=== PATIENT | male | born 1975 | race Caucasian/White ===

== ENCOUNTER 2019-02-04 16:06 | Inpatient (IN) | payer SELFPAY ==
[2019-02-04] MEDS ORDERED: Morphine 4 MG/ML VIAL ONE (16:32)
[2019-02-04] MEDS ORDERED: Ondansetron PF 4 MG/2 ML Vial ONE (16:33)
[2019-02-04 17:21] LABS: #Eosinphils 0.1 thou/uL (0.0-0.7); #Lymphocytes 1.7 thou/uL (1.20-3.40); #Monocytes 0.8 thou/uL (0.11-0.59); %Basophils 0.2 % (0.0-1.0); %Eosinophils 0.8 % (0.0-10.0); %Lymphocytes 13.5 % (21.0-51.0); %Neutrophils 79.5 % (42.0-75.0); Hemoglobin 15.8 g/dL (14.0-18.0); Mean Corpuscular HGB CONC 33.9 g/dL (32.0-36.0); Mean Corpuscular Hemoglobin 29.2 pg (27.0-31.0); Mean Corpuscular Volume 86.2 fL (78.0-98.0); Mean Platelet Volume 9.2 fL (7.4-10.4); Platelet Count 186 thou/uL (130-400); RBC Distribution Width 12.3 % (11.5-14.5); White Blood Cell (WBC) Count 12.6 thou/uL (4.8-10.8)
--- NOTE | 2019-02-04 17:25 | CT ---
EXAM: Brain CT without contrast: HISTORY: Injury from trauma COMPARISON: None FINDINGS: Minimal motion artifact. No focal mass or midline shift. No intra or extra-axial hemorrhage. Sinuses and mastoids are clear of acute process. IMPRESSION: No mass or bleed or other significant acute intracranial process.
[2019-02-04 17:27] LABS: INR-International Normal Ratio 1.1; PTT 25.9 SEC (22.9-36.1); Prothrombin Time 14.1 SEC (12.0-14.7)
--- NOTE | 2019-02-04 17:33 | CT ---
EXAM: CT scan cervical spineWithout contrast: HISTORY: Injury from trauma COMPARISON: None FINDINGS: No evidence for acute fracture or facet dislocation. No significant malalignment. No prevertebral soft tissue swelling. Minimal disc osteophytosis with some associated multilevel stenosis. Incomplete segmentation anomaly at T1-T2 incidentally noted. IMPRESSION: No evidence for acute fracture or facet dislocation or other significant acute process.
--- NOTE | 2019-02-04 17:43 | CT ---
Exam: Facial bone CT scan without IV contrast: HISTORY: Injury from trauma FINDINGS: There is some irregularity of the left nasal bone evidence for nondisplaced fracture. There are exten sive dental caries with some prominent mandibular and maxillary periodontal disease and associated lucencies around numerous teeth. There is sinus mucosal disease including the right sphenoid and ethm oid sinuses with partial opacification of the left mastoid air cells. There appears to be dislocation of the left maxillary central incisor tooth. No evidence for other significant acute faci al bone fracture. The mandible itself appears intact. Zygomatic arches are intact. Visualized orbits are unremarkable. IMPRESSION: Evidence for nondisplaced left nasal bone fracture. Dislocated displaced left maxillary central incisor tooth. Extensive dental caries as well as extensi ve periodontal disease. Sinus mucosal disease. Partial opacification left mastoid. Findings of the brain CT, cervical spine CT scan, and facial bone CT scan were discussed with Dr. Amanda hui in the emergency room at 5:38 PM CODE CR
[2019-02-04 17:52] LABS: ALT (SGPT) 16 U/L (8-55); AST (SGOT) 23 U/L (5-34); Albumin 4.2 g/dL (3.5-5.0); Alcohol Less than 10 mg/dL (Less than 10); Alkaline Phosphatase 68 U/L (40-110); Anion Gap 13 mmol/L (10-20); BUN (Urea Nitrogen) 17 mg/dL (8.9-20.6); Bilirubin, Total 0.7 mg/dL (0.2-1.2); Calc. Creatinine Clearance 0 mL/min (70-130); Calcium 8.8 mg/dL (7.8-10.44); Carbon Dioxide 22 mmol/L (22-29); Chloride 109 mmol/L (98-107); Estimated GFR-MDRD 74; Globulin 2.5 g/dL (2.4-3.5); Glucose 103 mg/dL (70-105); Potassium 3.7 mmol/L (3.5-5.1); Protein, Total 6.7 g/dL (6.0-8.3); Sodium 140 mmol/L (136-145)
[2019-02-04] MEDS ORDERED: Fentanyl 100 MCG/2 ML VIAL ONE ×2 (18:10→19:27)
--- NOTE | 2019-02-04 19:10 | RAD ---
LATERAL RADIOGRAPH OF THE RIGHT FOREARM 02/04/19 COMPARISON: None. HISTORY: Injury, trauma, pain. FINDINGS: A single lateral radiograph of the right forearm is provided demonstrating a markedly comminuted and markedly displaced fracture of the distal right radius with dorsal and proximal displacement of the distal fracture fragment as well as the carpus. Post reduction imaging is advised. IMPRESSION: Comminuted distal right radial fracture with dorsal and proximal displacement of distal fracture frag ment as well as carpus. Dedicated right wrist imaging and post reduction imaging advised. POS: KIRILL
--- NOTE | 2019-02-04 19:12 | RAD ---
RIGHT FOOT THREE VIEWS: 02/04/19 COMPARISON: None. HISTORY: Fall, trauma, pain. FINDINGS: There is an obliquely oriented fracture involving the distal shaft of the fifth metatarsal with 4 mm of medial displacement of the distal fracture fragment. No evidence for dislocation. No additional fr acture. IMPRESSION: Obliquely oriented displaced fracture of the fifth metatarsal shaft. POS: KIRILL
--- NOTE | 2019-02-04 19:14 | RAD ---
FRONTAL RADIOGRAPH PELVIS 02/04/19 COMPARISON: None. HISTORY: Fall, trauma, pain. FINDINGS: No widening of the sacroiliac joints or pubic symphysis. The femoral heads project normally over thei r respective acetabulum. Pelvic ring is intact with no displaced fracture noted. IMPRESSION: No displaced fracture of the pelvis. POS: KIRILL
--- NOTE | 2019-02-04 19:16 | RAD ---
FRONTAL RADIOGRAPH CHEST: 02/04/19 COMPARISON: None. HISTORY: Fall, trauma, pain, FINDINGS: Supine imaging is provided, limiting assessment for pneumothorax and pleural fluid. Heart and mediastinal contours are grossly unremarkable. Lungs are clear. IMPRESSION: No acute findings. POS: KIRILL
[2019-02-04] MEDS ORDERED: Ketamine 50 MG/ML (10ML VIAL) ONE ×2 (19:27→19:56)
[2019-02-04] MEDS ORDERED: Lorazepam 2 MG/ML VIAL ONE ×2 (20:01→20:09)
--- NOTE | 2019-02-04 20:47 | RAD ---
Exam: Right wrist 2 views: HISTORY: Injury from trauma COMPARISON: Prior forearm evaluation 2 views of the wrist demonstrate stabilization with splint material. There is improvement in position and alignment: Compared to the prereduction study. There persists to be extensively comminuted fractures of the distal radius with marked dorsal angulation persistent. There is resultant overridin g and foreshortening. IMPRESSION: Extensively comminuted distal radial fracture with dorsal displacement and angulation and foreshorten ing with some overall improvement from the prereduction study. Splint material overlies the wrist. There is some minimal irregularity of the lateral trapezium, this could represent a chip type fractur e or may just represent artifact.
[2019-02-04] MEDS ORDERED: PROPOFOL 20 ML ONE (21:28)
[2019-02-04] MEDS ORDERED: Ondansetron PF 4 MG/2 ML Vial IVP PRN (21:55)
[2019-02-04] MEDS ORDERED: Morphine 4 MG/ML VIAL SLOW IVP PRN (21:55)
[2019-02-04] MEDS ORDERED: Dextrose 50% Abboject 50 ML SYRINGE SLOW IVP PRN (21:55)
[2019-02-04] MEDS ORDERED: Ondansetron ODT 4 MG TAB PO PRN (21:55)
[2019-02-04] MEDS ORDERED: Dextrose 5% in Water 1,000 ML IV PRN (21:55)
[2019-02-04] MEDS ORDERED: hydrALAZINE 20 MG/ML VIAL SLOW IVP PRN (21:55)
[2019-02-04] MEDS ORDERED: Cyclobenzaprine 10 MG TAB PO PRN (22:10)
[2019-02-04] MEDS ORDERED: traMADol HCl 50 MG TAB PO PRN (22:11)
[2019-02-04] MEDS ORDERED: Lidocaine 1% PF 5 ML VIAL ONE (22:49)
[2019-02-04] MEDS ORDERED: HYDROmorphone 0.5 MG/0.5 ML SYRINGE ONE (22:50)
--- NOTE | 2019-02-04 23:18 | RAD ---
Exam: Right forearm 2 views: HISTORY: Post reduction COMPARISON: Right wrist, 02/04/2019, 8:16 PM FINDINGS: There is improved position and alignment of the comminuted distal radial fracture with some minimal p ersistent dorsal displacement. Prominent soft tissue swelling. IMPRESSION: Improvement in position and alignment of the comminuted distal radial fracture.
--- NOTE | 2019-02-04 23:41 | RAD ---
Exam: Right elbow 3 views: HISTORY: Injury from trauma Splint material stabilizes the forearm and overlies the elbow. No evidence for overt acute fracture o r dislocation. If the patient has persistent or worsening elbow pain, follow-up imaging after removal of the splint material might be a consideration. IMPRESSION: No overt acute fracture or dislocation. Overlying splint material.
[2019-02-04] MEDS ORDERED: Acetaminophen 1,000 MG in Premix Bag 1 BAG IVPB SCH (23:59)
--- NOTE | 2019-02-05 00:46 | HP ---
This is Almaz Shipley NP dictating a report for Bruce Juarez MD. Requesting, Dr. Rice. CONSULT: 1. Orthopedic Surgery, Dr. Pereira. 2. Oral Maxillofacial Surgery, Dr. Webb. HISTORY OF PRESENT ILLNESS: This was a level 2 trauma activation, a 43-year-old gentleman who was standing on an unsecured ladder painting when the ladder tipped over causing the patient to fall landing on the ground. Patient reports hitting his face when he fell. Patient denies any loss of consciousness and was able to recall the event. Patient reported immediate facial pain and right arm pain and deformity. Patient also reported left foot pain. Patient was evaluated in the emergency room and was found to have an extensive comminuted distal radial fracture with dorsal displacement and angulation with foreshortening. Patient was given conscious sedation and attempted to reduce unsuccessfully. A splint was applied and the ER plans to attempt reduction again. Patient also has a 2 cm forehead laceration and a chin abrasion. No active bleeding. Patient was given ketamine with the first conscious sedation, which patient did not tolerate very well and became severely agitated afterwards. Patient was then given propofol for the second attempt. Patient was also given a tetanus injection and multiple doses of IV pain medication. Patient is currently in the emergency room, sedated, subjective information was obtained by the patient's spouse and the ER nurse. The patient's initial GCS was 15 prior to conscious sedation. Patient currently arouses to painful stimuli. PAST MEDICAL HISTORY: Anxiety, depression, paranoid schizophrenia, bipolar. According to the spouse, the patient refuses his medications. SURGICAL HISTORY: Unknown. SOCIAL HISTORY: Patient smokes two packs a day for the last 20 years, occasional alcohol use, denies illicit drug use. ALLERGIES: PENICILLIN. MEDICATIONS: None. REVIEW OF SYSTEMS: A 10-point review of systems was obtained by the patient's spouse and is negative unless otherwise indicated in the above HPI. PHYSICAL EXAMINATION: VITAL SIGNS: Blood pressure 130/83, pulse 96, respirations 16, SpO2 of 95% on room air, and temp 97.8. GENERAL: Middle aged gentleman, lying in hospital bed, sedated, arouses to painful stimuli, in no acute distress. HEENT: A 2 cm vertical laceration to the left forehead. No active bleeding, swelling to nose, no bloody drainage, dried blood to the lips, displaced upper teeth, abrasion to chin. Pupils are equal and reactive. NECK: Cervical spine cleared prior to conscious sedation, trachea midline. RESPIRATORY: Equal chest rise and fall, bilateral breath sounds clear, no wheezing, rales, or rhonchi. No obvious chest deformity. CARDIAC: Regular rate, regular rhythm, no murmurs. ABDOMEN: Abrasion to mid left abdomen. Abdomen is soft, nontender, and nondistended, active bowel sounds. PELVIS: Stable. EXTREMITIES: Moves all extremities, right upper extremity splinted, cap refill less than 2 seconds, distal pulses 2+ in all extremities, abrasion to right lower extremity, abrasion to left knee. NEUROLOGIC: Patient is sleepy at this time, conscious sedation being performed. DIAGNOSTIC DATA: 1. Right wrist x-ray, impression, extensive comminuted distal radial fracture with dorsal displacement and angulation and foreshortening. Brain CT, no mass or bleed or other significant acute intracranial process. 2. Cervical spine CT. No evidence for acute fracture or facet dislocation or other significant acute process. 3. Chest x-ray, impression, no acute findings. 4. Pelvis x-ray, impression, no displaced fracture of the pelvis. 5. Facial bone CT. Nondisplaced left nasal bone fracture, dislocated displaced left maxillary central incisor tooth. Extensive dental caries as well as extensive periodontal disease, sinus mucosal disease. Partial opacification of left mastoid. 6. Left foot x-ray, impression, obliquely oriented displaced fracture of the fifth metatarsal shaft. LABORATORY DATA: WBC 12.6, RBC 5.40, hemoglobin 15.8, hematocrit 46.5, and platelets 186. PT 14.1 and INR 1.1. Sodium 140, potassium 3.7, chloride 109, carbon dioxide 22, BUN 17, creatinine 1.07, estimated GFR 74, glucose 103, calcium 8.8, AST 23, and ALT 16. Plasma alcohol less than 10. IMPRESSION: 1. Status post fall from ladder approximately 6 feet. 2. Left comminuted distal radial fracture with dorsal displacement, reduced in the emergency room. 3. Left nondisplaced nasal bone fracture. 4. Dislocated, displaced left maxillary central incisor tooth. 5. Left displaced fifth metatarsal shaft fracture. 6. Left forehead laceration, status post repair in the ER. 7. Multiple abrasions to the extremities. 8. Acute traumatic pain. 9. History of anxiety, depression, paranoid schizophrenia, and bipolar, not on medications. PLAN: We will admit the patient to the surgical floor. Patient will be n.p.o. after midnight with maintenance IV fluids, normal saline at 120 an hour. Orthopedics, Dr. Pereira, plans to take the patient to the OR tomorrow to repair right arm and left foot fracture. Oral Maxillofacial Surgery, Dr. Webb, was consulted and pending plan. Patient will be placed on a pain regimen. PT and OT consult will be placed to evaluate and treat postop. The plan was discussed with the patient's spouse who agrees. The plan will be discussed with the attending after this dictation. Job ID: [id number] MTDD
[2019-02-05 01:38] VITALS: BMI 29.2
[2019-02-05] MEDS: Sodium Chloride 0.9% 1,000 ML IV SCH ×3 (02:30→14:45)
[2019-02-05] MEDS: Nicotine 14 MG PATCH TOP SCH (02:31)
[2019-02-05 04:41] LABS: Bilirubin Negative (Negative); Blood, Urine Negative (Negative); Clarity Clear (Clear); Glucose, Urine (Dipstick) Normal (Negative); Leukocyte Negative Leu/uL (Negative); Nitrite Negative (Negative); Protein, Urine (Dipstick) Negative (Neg-Trace); Urobilinogen Normal mg/dL (Less than 2)
[2019-02-05 04:54] LABS: Amphetamine Detected (NotDetected); Barbiturates Screen Not Detected (NotDetected); Benzodiazepine Screen Detected (NotDetected); Cocaine Metabolite Screen Not Detected (NotDetected); Medtox Control Line Valid? VALID (VALID); Medtox Reader # READER 4; Methadone Not Detected (NotDetected); Methamphetamine Detected (NotDetected); Opiate Screen Detected (NotDetected); Oxycodone Screen Not Detected (NotDetected); Phencyclidine (PCP) Not Detected (NotDetected); THC/Cannabinoid Screen Detected (NotDetected); Tricyclic Screen Not Detected (NotDetected)
[2019-02-05] MEDS: Ibuprofen 800 MG TAB PO SCH ×3 (05:59→21:13)
[2019-02-05 06:21] LABS: #Basophils 0.1 thou/uL (0.0-0.2); #Eosinphils 0.1 thou/uL (0.0-0.7); #Lymphocytes 2.4 thou/uL (1.20-3.40); #Monocytes 0.8 thou/uL (0.11-0.59); #Neutrophils 5.6 thou/uL (1.40-6.50); %Basophils 0.7 % (0.0-1.0); %Eosinophils 0.8 % (0.0-10.0); %Lymphocytes 26.7 % (21.0-51.0); %Monocytes 9.2 % (0.0-10.0); %Neutrophils 62.6 % (42.0-75.0); Mean Corpuscular HGB CONC 32.8 g/dL (32.0-36.0); Mean Corpuscular Hemoglobin 28.8 pg (27.0-31.0); Mean Corpuscular Volume 87.7 fL (78.0-98.0); Mean Platelet Volume 9.3 fL (7.4-10.4); Platelet Count 159 thou/uL (130-400); RBC Distribution Width 12.4 % (11.5-14.5); Red Blood Cell (RBC) Count 4.88 mill/uL (4.70-6.10); White Blood Cell (WBC) Count 8.9 thou/uL (4.8-10.8)
[2019-02-05 06:39] LABS: Anion Gap 11 mmol/L (10-20); BUN (Urea Nitrogen) 11 mg/dL (8.9-20.6); Calc. Creatinine Clearance 160 mL/min (70-130); Calcium 7.8 mg/dL (7.8-10.44); Carbon Dioxide 20 mmol/L (22-29); Chloride 110 mmol/L (98-107); Estimated GFR-MDRD Greater than 90; Glucose 93 mg/dL (70-105); Potassium 3.6 mmol/L (3.5-5.1); Sodium 137 mmol/L (136-145)
[2019-02-05] MEDS ORDERED: Clindamycin/D5W 900 MG in Premix Bag 1 BAG IVPB SCH (07:45)
[2019-02-05] MEDS: Famotidine 20 MG TAB PO SCH ×2 (07:53→21:13)
[2019-02-05] MEDS: Gabapentin 300 MG CAP PO SCH ×3 (07:53→21:12)
[2019-02-05] MEDS: Polyethylene Glycol 3350 17 GM Packet PO SCH (07:54)
[2019-02-05] MEDS: Acetaminophen 1,000 MG in Premix Bag 1 BAG IVPB SCH ×2 (08:35→14:00)
--- NOTE | 2019-02-05 08:50 | CON ---
DATE OF CONSULTATION: This is Good Estevez PA-C dictating a report for Vishnu Pereira MD. HISTORY: We were asked by Trauma and ER to see the patient. 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 The patient had wrist reset twice in the ER, first time not very successful, second time much better alignment and now he has good sensations and movement in the wrist. Currently, he is resting in a bed in room 4419, his significant other is next to him. Currently, he is answering questions well. His main concern though is he would like to go have a cigarette, which we have encouraged him not to. He does have a 14 mg nicotine patch added. PAST MEDICAL HISTORY: Anxiety, depression, paranoid schizophrenia, and bipolar. PAST SURGICAL HISTORY: None stated. SOCIAL HISTORY: Smokes 2 packs a day. Occasional alcohol use. Denies any drug use per spouse. 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 ALLERGIES: PENICILLIN. MEDICATIONS: He takes none. FAMILY HISTORY: For this particular incident is noncontributory. REVIEW OF SYSTEMS: He has a headache. He feels a little bit somnolent due to medications he is receiving and he has right wrist pain. Otherwise, rest of review of systems is negative. PHYSICAL EXAMINATION: GENERAL: Well-nourished, well-developed male, resting in the bed in room 4419, in no acute distress. Spouse is at the bedside. Speech is soft, but clear. He is oriented. HEENT: He does have some lacerations to the face and bruising. Otherwise, face is for the most part, symmetric. Smile symmetric. Tongue midline. NECK: Supple. Trachea midline. EXTREMITIES: Upper extremities; equal size, shape, symmetry. Normal bulk and tone with the exception of right upper extremity, which is splinted. He is able to move his digits okay and states he has good sensations. Lower extremities moving well. RESPIRATORY: No acute distress. DIAGNOSTIC DATA: X-rays shows a good alignment of fracture in the right wrist. It was quite angulated deformity prior to straightening. ASSESSMENT: 1. Fall from ladder with multiple injuries. 2. Right wrist fracture. PLAN: The patient admitted under Trauma. Currently n.p.o. We plan on doing an ORIF of the right wrist. Risks and benefits have been explained to patient and spouse. We have encouraged him not to smoke, healing will be problematic if he continues to smoke. Questions have been answered. Concerns have been addressed. Again, he understands risks and benefits and he is amenable to go forth with surgery. Although, the patient's states he does no illicit drug use. His tox screen is fairly positive. We will get him on surgery schedule today and get him consented. Keep him n.p.o. Trauma will treat pain accordingly. Job ID: [id number] MTDD
[2019-02-05] MEDS ORDERED: FLU VACC QS2019-20(6MOS UP)/PF 60 MCG/0.5 ML SYRINGE IM ONE (09:00)
[2019-02-05] MEDS ORDERED: PHENYLEPHRINE-NS 100 MCG/ML 10 ML SYRINGE ONE (09:55)
[2019-02-05] MEDS ORDERED: PROPOFOL 200 MG/20 ML VIAL ONE (09:55)
[2019-02-05] MEDS ORDERED: Bupivacaine HCl 0.5%/Epinephrine 1:200,000/PF 30 ml Vial ONE (09:56)
--- NOTE | 2019-02-05 10:12 | PRG ---
DATE OF SERVICE: 02/05/2019 SUBJECTIVE: Mr. Sanchez is a 43-year-old man, who is post injury day #1, status post fall from a ladder. The patient sustained multiple traumatic injuries including right wrist fracture, multiple facial bone fractures. He is awake and alert today. He reports 7/10 right arm pain. Venancio Coma Scale has remained at 15. He denies any dyspnea, syncope, or chest pain. OBJECTIVE: VITAL SIGNS: Include blood pressure 115/80, pulse 72, respiratory rate is 18, temperature 97.9 degrees Fahrenheit, and oxygen saturation is 98% on room air. HEENT: Reveals no significant facial swelling. Pupils are equal, round, and reactive to light and accommodation. HEART: Reveals regular rate and rhythm. No murmurs or gallops auscultated. LUNGS: Clear to auscultation bilaterally. Breathing, regular and nonlabored. ABDOMEN: Soft, nontender, and nondistended. EXTREMITIES: Reveal 2+ radial and pedal pulses bilaterally. NEUROLOGIC: Reveals no focal deficits present. LABORATORY FINDINGS: Include CBC with 8900 white blood cells, hemoglobin and hematocrit are stable at 14.0 and 42.8 respectively. Platelet count is 159,000. Metabolic profile; sodium 137, potassium 3.6, chloride is 110, bicarb is 20, BUN 11, creatinine 0.75, glucose is 93. IMPRESSION: 1. Post injury day #1 status post fall. 2. Multiple traumatic injuries including multiple facial fractures as well as right wrist fracture. PLAN: The patient is hemodynamically stable to proceed with Orthopedic Surgery for repair of the right wrist fracture. He is also pending evaluation by OMFS with regard to the facial fractures. Above findings and plan discussed with the patient, who indicates understanding of information given. We will optimize pain management. Job ID: [id number]
--- NOTE | 2019-02-05 10:29 | CON ---
DATE OF CONSULTATION: REASON FOR CONSULTATION: Nasal bone fracture and displaced tooth #9. CHIEF COMPLAINT: Fall. HISTORY OF PRESENT ILLNESS: This is a level 2 trauma activation. A 43-year-old male, fell from a ladder, hitting his face when he fell. Denies loss of consciousness. Complaining of right facial pain and arm pain and a displaced tooth. Splint was applied in the ER for arm fracture and tooth was also reduced in the ER. The patient also of note had a laceration of 2 cm to his forehead that was closed in the ER. PAST MEDICAL HISTORY: Anxiety, depression, paranoid schizophrenia, and bipolar. PAST SURGICAL HISTORY: Unknown. SOCIAL: The patient smokes 2 packs a day. Occasional alcohol. Denies illicit drugs. ALLERGIES: PENICILLIN. MEDICATIONS: None. PHYSICAL EXAMINATION: VITAL SIGNS: Stable. He is afebrile. GENERAL: He is awake, alert, and oriented x3. GCS 15. HEENT: His pupils are equal, round, and reactive to light and accommodation. He has a closed left forehead laceration approximately of about 2 cm. It is hemostatic. There is no mobility of his maxilla. There is no fracture mobility of his mandible. No crepitus of his nasal bones. His nares are patent. I see no blood in the nasal cavity. No septal hematoma. Tooth #9 has been placed back into its previous position. There is mild class 1 mobility. He does, however, have gross generalized coronal decay and cervical decay of all his teeth. Periodontal disease. Poor oral hygiene with abundant plaque and calculus. DIAGNOSTIC DATA: CT scan of the face shows dislocated tooth #9 as well as a nondisplaced nasal bone fracture. ASSESSMENT: 1. Nondisplaced nasal bone fracture. 2. Subluxated tooth #9. PLAN: No surgical intervention is needed at this time for either of his injuries. The patient's tooth is in good location. The patient does have a poor prognosis overall for his dentition and he has generalized periodontal disease and decay. Needs to follow up with General as an outpatient. Job ID: [id number]
[2019-02-05] MEDS ORDERED: Clindamycin/D5W 900 mg/50 ml Premix Bag ONE (12:55)
[2019-02-05] MEDS ORDERED: Midazolam HCl 2 mg/2 ml Vial ONE (16:32)
[2019-02-05] MEDS ORDERED: Fentanyl 100 MCG/2 ML VIAL ONE (16:32)
[2019-02-05] MEDS ORDERED: Ketamine 50 MG/ML (10ML VIAL) ONE (16:51)
--- NOTE | 2019-02-05 18:36 | RAD ---
Exam: Right wrist 3 views HISTORY: ORIF right wrist Previously noted markedly comminuted markedly displaced distal radial fracture is stabilized with met al plate and screws with considerable improvement in position and alignment. There also appears to be an ulnar styloid process fracture. On this study there appears to be potentially mild abnormal wid ening of the scapholunate space raising concern for the possibility of scapholunate ligament injury. IMPRESSION: Status post ORIF distal radius. Chip fracture of the ulnar styloid process. Minimal widening of the scapholunate space raising concern for scapholunate ligament injury.
[2019-02-05] MEDS ORDERED: Acetaminophen 500 MG TAB PO SCH (18:45)
[2019-02-05] MEDS: traMADol HCl 50 MG TAB PO PRN (21:12)
[2019-02-05] MEDS: Clindamycin/D5W 900 MG in Premix Bag 1 BAG IVPB SCH (21:12)
[2019-02-05] MEDS: Acetaminophen 500 MG TAB PO SCH (23:32)
--- NOTE | 2019-02-06 01:27 | PRG ---
DATE OF SERVICE: 02/06/2019 SUBJECTIVE: The patient was seen this evening on the surgical floor. The patient is postop repair of his right distal radius ulnar fracture earlier today. The patient's pain has been well controlled postop. The patient insisted that he go outside to smoke this evening. The patient is tolerating a regular diet. OBJECTIVE: VITAL SIGNS: Stable, afebrile. PLAN: Continue supportive care. We will have patient work with physical and occupational therapy tomorrow. OMFS did see the patient today and recommended follow up with general dentist outpatient. No surgical intervention needed at this time. Job ID: [id number]
[2019-02-06] MEDS: Nicotine 14 MG PATCH TOP SCH (02:39)
[2019-02-06] MEDS: Acetaminophen 500 MG TAB PO SCH (05:11)
[2019-02-06] MEDS: Ibuprofen 800 MG TAB PO SCH ×2 (05:12→14:06)
[2019-02-06] MEDS: Clindamycin/D5W 900 MG in Premix Bag 1 BAG IVPB SCH ×2 (05:13→14:05)
[2019-02-06 05:32] LABS: #Eosinphils 0.1 thou/uL (0.0-0.7); #Lymphocytes 1.1 thou/uL (1.20-3.40); #Monocytes 0.9 thou/uL (0.11-0.59); #Neutrophils 7.3 thou/uL (1.40-6.50); %Basophils 0.3 % (0.0-1.0); %Eosinophils 0.6 % (0.0-10.0); %Monocytes 9.5 % (0.0-10.0); %Neutrophils 77.6 % (42.0-75.0); Hemoglobin 13.6 g/dL (14.0-18.0); Mean Corpuscular HGB CONC 32.7 g/dL (32.0-36.0); Mean Corpuscular Hemoglobin 28.9 pg (27.0-31.0); Mean Corpuscular Volume 88.4 fL (78.0-98.0); Platelet Count 146 thou/uL (130-400); RBC Distribution Width 12.3 % (11.5-14.5); Red Blood Cell (RBC) Count 4.71 mill/uL (4.70-6.10); White Blood Cell (WBC) Count 9.4 thou/uL (4.8-10.8)
[2019-02-06 05:49] LABS: Anion Gap 8 mmol/L (10-20); BUN (Urea Nitrogen) 9 mg/dL (8.9-20.6); Calc. Creatinine Clearance 154 mL/min (70-130); Calcium 7.9 mg/dL (7.8-10.44); Carbon Dioxide 25 mmol/L (22-29); Chloride 109 mmol/L (98-107); Estimated GFR-MDRD Greater than 90; Glucose 114 mg/dL (70-105); Magnesium 1.9 mg/dL (1.6-2.6); Phosphorus 2.2 mg/dL (2.3-4.7); Potassium 3.8 mmol/L (3.5-5.1); Sodium 138 mmol/L (136-145)
[2019-02-06] MEDS ORDERED: PHOS-NAK 1 PKT PACK PO SCH (08:00)
[2019-02-06] MEDS: Polyethylene Glycol 3350 17 GM Packet PO SCH (08:25)
[2019-02-06] MEDS: Gabapentin 300 MG CAP PO SCH ×2 (08:25→14:06)
[2019-02-06] MEDS: traMADol HCl 50 MG TAB PO PRN (08:26)
[2019-02-06] MEDS: Famotidine 20 MG TAB PO SCH (08:26)
[2019-02-06] MEDS ORDERED: Aspirin 81 mg Enteric Coated Tablet PO SCH (09:00)
[2019-02-06] MEDS ORDERED: Acetaminophen 500 MG TAB PO SCH (10:45)
[2019-02-06 11:12] VITALS: TEMP 97.6
[2019-02-06] MEDS: Acetaminophen/Codeine 30-300mg Tablet PO PRN ×2 (11:44→15:55)
[2019-02-06] MEDS ORDERED: Acetaminophen 325 MG TAB PO SCH (12:00)
--- NOTE | 2019-02-06 13:47 | DIS ---
DATE OF ADMISSION: 02/05/2019 DATE OF DISCHARGE: 02/06/2019 CONSULTING PHYSICIAN: Dr. Pereira of Orthopedic Surgery and Dr. Webb of [facility] [place]. PROCEDURES: The patient went to the OR on February 05, 2019, for fixation of a right distal radius ulnar fracture as well as a pending of the left distal fifth metatarsal fracture. HOSPITAL COURSE: The patient is a 43-year-old male, who presents to the emergency department after a fall from a ladder about 6 feet. He was a level 2 trauma activation. Upon evaluation, it was noted that the patient had a right distal radius ulnar fracture, left-sided nasal bone fracture, and a displaced maxillary central incisor tooth. He had a left displaced fifth metatarsal fracture and a forehead laceration as well. He was admitted to the Trauma Service. In the next day, he went to the OR with Dr. Pereira for fixation of his right distal radius ulnar fracture and his fifth metatarsal fracture. Postoperatively, he worked with Physical and Occupational Therapy. Dr. Webb of [facility] [place] also saw the patient and reported there was no operative indication. He did not need to follow up with him in clinic unless he should see general dentist. At the time of discharge, the patient's pain was well controlled. He was tolerating a regular diet, ambulating without difficulty and voiding without issues. DISCHARGE DISPOSITION: Home. DISCHARGE CONDITION: Satisfactory. PHYSICAL EXAMINATION: VITAL SIGNS: Temperature 97.6, pulse 91, respirations 18, oxygen saturation 94% on room air, and blood pressure 112/73. GENERAL: Middle-aged male, sitting up in bed with no signs of acute distress. PULMONARY: Equal chest rise and fall. Clear breath sounds bilaterally. No signs of acute respiratory distress. CARDIAC: Regular rate and rhythm. GASTROINTESTINAL: Soft, nontender, and nondistended. EXTREMITIES: 2+ pulses in all extremities. Gross motor and sensation are intact. Left lower extremity with walking shoe in place. NEUROLOGIC: GCS is 15. DISCHARGE INSTRUCTIONS: The patient was discharged home. Activity as tolerated. Weightbearing as tolerated in all extremities. Regular diet. DISCHARGE MEDICATIONS: Include: 1. Tylenol. 2. Ibuprofen. 3. Gabapentin. 4. Flexeril. 5. MiraLAX. 6. Aspirin. FOLLOWUP APPOINTMENTS: The patient is to follow up with Dr. Pereira in his clinic in 10 days. No need for followup with Dr. Myles. This is a summary of the patient's hospitalization. For full details, please see his medical record in its entirety. Job ID: [id number]
[2019-02-06 15:26] VITALS: BP 118/70
--- NOTE | 2019-02-10 09:12 | OP ---
DATE OF PROCEDURE: 02/05/2019 PREOPERATIVE DIAGNOSIS: Severely comminuted distal radius fracture, right. POSTOPERATIVE DIAGNOSIS: Severely comminuted distal radius fracture, right. PROCEDURE PERFORMED: Open reduction and internal fixation of right distal radius. ANESTHESIA: General. DIABETES EDUCATOR: Hreb. TOURNIQUET TIME: 49 minutes at 250 mmHg. IMPLANTS: Synthes 2.7 mm Variable LCP Two-Column volar distal radial plate. COMPLICATIONS: None. DRAINS: None. SPECIMEN: None. OUTCOME: Near-anatomic alignment. INDICATIONS: The patient is a 43-year-old gentleman, status post fall from ladder, landed on outstretched right arm. He sustained a severely comminuted distal radius fracture to the right side. While in the emergency room, he was beginning to develop some median nerve dysesthesias. The patient now taken to the operating room for open reduction and internal fixation of this fracture. It should be noted that the wrist was provisionally reduced in the emergency room with some pressure taken off the median nerve prior to this surgical procedure. Risks and benefits have been discussed with the patient. Risks include, but are not limited to bleeding, infection, nerve injury, hand numbness, malunion, nonunion, wrist arthritis, loss of limb or life. The patient appears to understand and does wish to proceed. DESCRIPTION OF PROCEDURE: The patient was brought to the operating room and a time-out performed followed by induction of general anesthesia. Next, he was positioned supine on the OR table with the right arm on a hand board. A sterile prep and drape was then performed of the right upper extremity. The patient was found to have some mild fracture blisters, most notable along the radial aspect of the wrist. The skin on the volar wrist was found to have some mild contusion and ecchymosis, but no blistering. Next, a sterile prep and drape was performed of this right upper extremity. An Esmarch bandage was used to exsanguinate the limb and then a tourniquet was inflated to 250 mmHg. Next, a volar radial skin incision was made after skin was sharply incised. Dissection was carried down between the interval of the flexor carpi radialis and brachioradialis. The neurovascular bundle was identified and reflected radially and then the pronator quadratus was released off the radial border of the distal radius and reflected to the midline. At this point, the fracture could be well visualized. This was severely comminuted with multiple fragments as well as some intra-articular extension. The fracture was able to be reduced and held in place provisionally with a K-wire. AP and lateral C-arm images were then obtained that showed reasonably good hindu of radial length, radial inclination, and volar tilt. Next, a volar plate was applied. This was held in place provisionally with a cortical screw proximal to the fracture lines. Additional AP and lateral C-arm images were then obtained to confirm appropriate alignment of the hardware. Next, 4 locking screws were placed in the distal limb of the plate capturing the articular fragments. Two additional cortical screws were placed proximally, finishing this fixation. Following this, the wrist was examined on both AP and lateral images and there was found to be hindu of radial inclination, radial length and volar tilt. He was found to have some asymmetry at the scapholunate joint. However, it is unclear whether this is an acute or more chronic issue, and we will follow this and if necessary refer for hand evaluation. Following the application of hardware, the wound was then irrigated with bulb syringe and closed in layers with 2-0 Vicryl and then nylon for the skin. Xeroform gauze and sugar-tong splint was applied to the wrist and then the patient was transferred to recovery room in stable condition. There were no complications. The patient tolerated the procedure well. Job ID: [id number]
== END 2019-02-06 16:55 | disposition home or self-care (01) | DRG 511 ==
LOC: ERS 16:06 → T4-A 02-05 00:42 → SURG A 02-05 22:43
PROVIDERS: ADMIT Specialist; ATTEND Specialist
PROC: 0PSJXZZ Reposition Left Radius, External Approach (ICD-10-PCS; principal; 2019-02-05)
PROC: 0PSH04Z Reposition Right Radius with Internal Fixation Device, Open Approach (ICD-10-PCS; 2019-02-05)
DX: S52.592A Other fractures of lower end of left radius, initial encounter for closed fracture (principal); S02.40DA Maxillary fracture, left side, initial encounter for closed fracture; F20.0 Paranoid schizophrenia; R40.2412 Glasgow coma scale score 13-15, at arrival to emergency department; S02.2XXA Fracture of nasal bones, initial encounter for closed fracture; S01.81XA Laceration without foreign body of other part of head, initial encounter; F17.200 Nicotine dependence, unspecified, uncomplicated; S52.692A Other fracture of lower end of left ulna, initial encounter for closed fracture; W11.XXXA Fall on and from ladder, initial encounter; Z71.6 Tobacco abuse counseling; Y93.89 Activity, other specified; Y92.89 Other specified places as the place of occurrence of the external cause
CPT/HCPCS: 36415; 70450; 70486; 71045; 72125; 72170; 76000; 80048; 80053; 80306; 80307; 81003; 83735; 84100; 85025; 85610; 85730; C1713; G0390; J0131; J0670; J1170; J2001; J2060; J2250; J2270; J2405; J2704; J3010; J3490